=== PATIENT | female | born 1965 | race Caucasian/White ===

== ENCOUNTER 2024-09-01 21:07 | Emergency (ER) | payer OTHER, SELFPAY ==
[2024-09-01 21:28] VITALS: BP 133/74; PULSE 69; RESP 18; TEMP 36.6; O2SAT 98
--- NOTE | 2024-09-01 21:34 | PD.EDRME ---
Rapid Medical Screening Exam RME Arrival date/time: 09/01/24 21:07 Chief Complaint: Abdominal Pain Time Seen by Provider: 09/01/24 21:30 Vital signs: Vital Signs Temperature 97.9 F 09/01/24 21:28 Pulse Rate 69 09/01/24 21:28 Respiratory Rate 18 09/01/24 21:28 Blood Pressure 133/74 H 09/01/24 21:28 Pulse Oximetry (%) 98 09/01/24 21:28 Oxygen Delivery Method Room Air 09/01/24 21:28 RME Narrative: Generalized lower abdominal pain that started tonight. No N/V/D or urinary symptoms reported. 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
[2024-09-01 21:53] LABS: Basophils # (Auto) 0.1 Thou/mm3 (0.0-0.2); Basophils % (Auto) 1 % (0-2.5); Eosinophils # (Auto) 0.1 Thou/mm3 (0.0-0.5); Eosinophils % (Auto) 1 % (0-10); Hematocrit 37.4 % (36.0-46.0); Hemoglobin 12.7 g/dL (12.0-16.0); Immature Granulocytes % (Auto) 0 % (0-0); Immature Granulocytes Auto 0.02 Thou/mm3 (0.00-0.00); Lymphocytes # (Auto) 2.5 Thou/mm3 (1.0-4.8); Lymphocytes % (Auto) 25 % (10-50); Mean Corpuscular Hemoglobin 29.9 pg (25.0-35.0); Mean Corpuscular Volume 88 fL (80-100); Monocytes # (Auto) 0.6 Thou/mm3 (0.0-0.8); Monocytes % (Auto) 5 % (0-12); Neutrophils % (Auto) 69 % (37-80); Nucleated Red Blood Cell % 0 /100 WBC (0); Platelet Count 192 Thou/mm3 (140-440); RDW Standard Deviation 40.1 fL (36.4-46.3); Red Blood Count 4.25 Miln/mm3 (4.00-5.20); White Blood Count 10.1 Thou/mm3 (3.6-11.0)
[2024-09-01 22:34] LABS: Alanine Aminotransferase 21 U/L (10-49); Albumin, Serum 4.6 gm/dL (3.4-4.8); Albumin/Globulin Ratio 1.9 (1.2-2.2); Alkaline Phosphatase 63 U/L (46-116); Anion Gap 7 (7-16); Aspartate Amino Transferase 23 U/L (0-34); BUN/Creatinine Ratio 21 Ratio (12-20); Bilirubin,Total 0.5 mg/dL (0.3-1.2); Blood Urea Nitrogen 19 mg/dL (9-23); Calcium 9.6 mg/dL (8.3-10.6); Calcium (Corrected) 9.6 mg/dL (8.5-10.1); Carbon Dioxide 26.8 mMol/L (20.0-31.0); Chloride 106 mMol/L (98-107); Creatinine (Component) 0.9 mg/dL (0.6-1.3); Globulin 2.4 gm/dL (2.3-3.5); Glucose 131 mg/dL (74-106); Lipase 27 U/L (12-53); Osmolality,Calculated 283 (275-295); Potassium 4.6 mMol/L (3.4-5.1); Sodium 140 mMol/L (136-145); eGFR > 60 See Note
[2024-09-01 22:46] LABS: Collection Type, Urine Clean Catch; Squamous Epithelial Cell,Urine 0 /hpf (0-5)
[2024-09-01 22:51] LABS: Bilirubin,Urine Negative (Negative); Blood,Urine 1+ (Negative); Clarity,Urine Clear (Clear/Hazy); Color,Urine Lt-Yellow (Lt Yel-Yel); Glucose, Urine Negative (Negative); Ketones,Urine 1+ (Negative); Leukocyte Esterase,Urine Negative (Negative); Nitrite,Urine Negative (Negative); PH,Urine 5.5 (5.0-7.0); Protein,Urine Negative (Neg - Trace); RBC,Urine 1 /hpf (0-3); Specific Gravity,Urine 1.016 (1.001-1.035); Urobilinogen,Urine Negative mg/dL (0.0-1.0); WBC,Urine 1 /hpf (0-5)
[2024-09-01 23:25] VITALS: BP 162/78; PULSE 51; RESP 12; TEMP 36.6; O2SAT 100
[2024-09-01] MEDS: HYDROcodone/APAP 7.5/325 TABLET 1 TAB PO (23:33)
--- NOTE | 2024-09-01 23:36 | XR_ITS ---
Examination: CT abdomen and pelvis without contrast. Coronal 3-D reconstructions. Sagittal 2-D reconstructions. Date and time of exam:August 24, 2024 11:50 PM INDICATIONS: Lower abdominal pain and nausea today CTDI: vol (mGy): 6.18 DLP: (mGycm): 298 Technique: Axial images of the abdomen have been obtained, 3 mm slice thickness Intravenous contrast material has not been administered. Low dose protocols were performed. One or more of the following dose reduction techniques were used; automated exposure control, adjustment of the mA and/or KV according to patient size, use of iterative reconstruction technique. Findings: No focal liver or splenic lesions No pancreatic mass No renal or ureteral calculi, no hydronephrosis Aorta normal size Normal appendix No bowel obstruction No diverticulitis Urinary bladder intact Degenerative change lumbar spine IMPRESSION: No acute process in the abdomen or pelvis
[2024-09-02] MEDS: SODIUM CHLORIDE 0.9% 1000 ML 1,000 ML 999 ML IV (00:06)
--- NOTE | 2024-09-02 00:29 | PD.EDABDPN ---
ED Abdominal Pain RME/HPI General Chief Complaint: Abdominal Pain Stated complaint: ABD PAIN Time seen by provider: 09/01/24 21:30 Arrival date/time: 09/01/24 21:07 RME / HPI RME / HPI narrative: Generalized lower abdominal pain that started tonight. No N/V/D or urinary symptoms reported. 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 Dr. Higginbotham'aurelio Main ED Evaluation: 59yo female with a history of HTN presents to the ED for a chief complaint of LLQ pain x 1400. No radiation or migration. Patient states her pain worsens in waves. No aggravating or alleviating factors. Patient denies any N/V/D, dysuria, bloody stools, BLE swelling or any other associated symptoms. Denies any sick contacts. Denies any history of similar symptoms. Last bowel movement was this morning. She states she quit smoking cigaretted 3 weeks ago. Related Data Previous Rx's ?Medication ?Instructions ?Recorded meclizine 25 mg tablet 25 mg PO TID PRN dizziness #20 tabs 06/17/20 polyethylene glycol 3350 17 17 g PO BID 14 days #119 grams 09/02/24 gram/dose oral powder (Miralax) Allergies Allergy/AdvReac Type Severity Reaction Status Date / Time Iodinated Contrast Media Allergy Severe eyes Verified 09/01/24 23:35 swelling No Known Allergies Allergy Unknown Uncoded 09/01/24 21:07 Review of Systems Review of Systems Systems Reviewed: All systems reviewed, normal except as documented Past Medical History Past Medical History NEUROLOGIC: Negative Neurological Disorders, Seizures or Cerebral Palsy CARDIAC: Positive Cardiac Disorders and Hypertension; Negative Myocardial Infarction, Angina or Congestive Heart Failure RESPIRATORY: Negative Respiratory Disorders, Chronic Obstructive Pulmonary Disease (COPD), Asthma, Bronchitis or Pulmonary Fibrosis GASTROINTESTINAL: Negative Gastrointestinal Disorders, Cirrhosis or Celiac Disease GENITOURINARY: Negative Genitourinary Disorders or Renal Disease MUSCULOSKELETAL: Negative Musculoskeletal Disorders, Muscular Dystrophy or Bone Cancer ENT: Negative History of ENT Problems, Blind or Deafness ENDOCRINE: Negative Endocrine Disorders, Diabetes Mellitus Type 1 or Diabetes Mellitus Type 2 HEMATOLOGIC: Negative Blood Disorders or Sickle Cell Disease OTHER HISTORY: Positive Ovarian Cancer; Negative Autoimmune Disease, Down Syndrome or Developmental Delay Family History FAMILY HISTORY: Negative Family Psychiatric Problems, Family Respiratory Disorders, Family Cardiac Disorders, Family Gastrointestinal Problems, Family Genitourinary Problems, Family Endocrine Disorders, Family Reproductive Disorders, Family Musculoskeletal Disorders, Family Cancer, Family Surgery or Family Anesthesia Reaction Surgical History SURGICAL: Positive Lumpectomy and Hysterectomy; Negative Endocrine Surgery, Ear Surgery, Nephrectomy, Joint Replacement or Neurologic Surgery Social History SMOKING STATUS: Never smoker SUBSTANCE USE: does not use ED Exam Narrative Physical exam: General: Non-toxic, well appearing, in no acute distress, and appears stated age and well developed and well nourished. Vital signs: Normal. Head: Normocephalic and atraumatic. Eyes: Aproptotic, extraocular movements intact. Nose: Nares without evidence of rhinorrhea. Neck: Supple without menigismus without lympadenopathy. Heart: Regular rate and rhythm without murmur, gallops, or rubs. Lungs: Clear to auscultation without wheezing, rales, or rhonchi. Abdomen: Soft, non distended. No tenderness. Normal bowel sounds. Negative Finley sign and no McBurney?s point tenderness. No guarding, rebound, or rovsing. Back: No costovertebral angle tenderness. Neurological: Alert and oriented to person, place, time. Gait normal. Extremities: no cyanosis or edema. Skin: no rashes, ecchymosis, or lesions. Course Quality Measures none Orders Category Date Time Status CT Screening NOW Care 09/01/24 21:[address] abdomen pelvis wo con Stat Exams 09/01/24 23:36 Taken CBC Stat Lab 09/01/24 21:39 Completed CMP [Comprehensive Metabolic Panel] Stat Lab 09/01/24 21:39 Completed Lipase Stat Lab 09/01/24 21:39 Completed UA [Urinalysis] Stat Lab 09/01/24 22:04 Completed HYDROcodone*/APAP 7.5/325 [[place] 7.5/325] Med 09/01/24 21:36 Discontinued 1 tab PO X1 ONE Morphine Inj Med 09/01/24 23:44 Discontinued 4 mg IVP X1 ONE Ondansetron Inj [Zofran Inj] Med 09/01/24 23:44 Discontinued 4 mg IV X1 ONE Sodium Chloride 0.9% 1000 ml [Ns] 1,000 ml Med 09/01/24 23:44 Discontinued IV 999 mls/hr Vital Signs Vital signs: Vital Signs Temperature 97.9 F 09/01/24 21:28 Pulse Rate 69 09/01/24 21:28 Respiratory Rate 18 09/01/24 21:28 Blood Pressure 133/74 H 09/01/24 21:28 Pulse Oximetry (%) 98 09/01/24 21:28 Oxygen Delivery Method Room Air 09/01/24 21:28 Abdominal Pain MDM MDM Narrative MDM Narrative:: Scribe Attestation: 09/02/24 Samreen Garcia am scribing for and in the presence of Dr. Higginbotham. 0132: Discussed results with the patient and her at bedside. Patient states her pain is improved. Patient is stable to be discharged home. Patient data External records reviewed:: [facility] previous records (Per chart review, patient was seen here on 06/17/20 for acute subdural hematoma.) Clinical information provided by:: patient Social determinants that could affect healthcare access:: substance use (quit smoking tobacco 3 weeks ago) Patient has the following chronic illnesses:: HTN How is presenting disease/condition affected by chronic disease/condition?: uneffected by Evaluation data The following diagnostics were reviewed and interpreted by me:: lab results and radiology exam(s) Lab and/or radiology exams considered but not ordered:: none Interpretation Summary: CBC is normal, CMP is normal, Lipase is normal, UA is unremarkable, according to my interpretation. --------- Telerad Preliminary Report Draft Patient: JOHN ALVAREZ Record#: [id number] Birthdate: 1965 Age/Sex: 59 / F Location: [facility] Attending Dr: Ordering Physician: Date of Service: Procedure(s): Accession Number(s): cc: ~ CT scan of the abdomen and pelvis without intravenous contrast (axial sections with sagittal and coronal reformats) September 01, 2024 2350 hours Clinical History: lower abd pain Comparison: No prior study is available for comparison. Findings: There are emphysematous changes in the lungs. The liver, gallbladder, pancreas, spleen, kidneys and adrenals are unremarkable on this noncontrast study. No evidence of bowel obstruction. A moderate amount of fecal material is present in the colon. The appendix is within normal limits (coronal images 43-51/119). There is no mesenteric or retroperitoneal adenopathy. The urinary bladder is unremarkable. The abdominal aorta demonstrates atheromatous calcification without evidence of aneurysm. There is no free fluid or free air. Degenerative changes are identified in the spine. Impression: No evidence of bowel obstruction, free air or fluid collection. Report Electronically Signed By: Michael Denney 09/02/2024 12:52:40 AM Medications / Prescriptions Medications or Prescriptions considered but not ordered:: none Medication administrations:: Medication Administration History Discontinued Medications Hydrocodone Bitart/Acetaminophen (Hydrocodone/[place] 7.5/325 Tablet) 1 tab PO X1 ONE Stop: 09/01/24 21:37 Last Admin: 09/01/24 23:33 Dose: 1 tab Documented By: DAVIN Sodium Chloride (Ns) 1,000 mls @ 999 mls/hr IV .Q1H1M ONE Stop: 09/02/24 00:44 Last Infusion: 09/02/24 01:07 Dose: Infused Documented By: Admin: 09/02/24 00:06 Dose: 999 mls/hr Documented By: DAVIN Morphine Sulfate (Morphine Sulf Inj 10 Mg/Ml Vial) 4 mg IVP X1 ONE Stop: 09/01/24 23:45 Last Admin: 09/02/24 00:32 Dose: 4 mg Documented By: DAVIN Ondansetron HCl (Ondansetron Inj 2 Mg/Ml Inj 2 Ml) 4 mg IV X1 ONE; Protocol Stop: 09/01/24 23:45 Last Admin: 09/02/24 00:32 Dose: 4 mg Documented By: DAVIN see above Consultations Consultation(s) initiated? (list below): No Diagnosis Differential diagnosis abdominal pain: other (kidney stone, ileus, ischemia) Most likely diagnosis given after review of the tests above:: see clinical impression below Admission Indicated Admission indicated?: not indicated Admission Request Was there a request for admission?: No Disposition Plan Disposition Plan: Discharge Discharge Attestation Discharge Attestation: The patient and all family members were given an opportunity to ask questions and understood the discharge instructions. Discharge instructions specifically effects, indications for sooner follow up or return to the emergency department, and the expected course of current diagnosis. Patient condition: Stable Discharge Plan Plan Patient Disposition: HOME (Self Care) Patient condition on transfer: Stable Prescriptions/Referrals Prescriptions/Med Rec: New polyethylene glycol 3350 [Miralax] 17 gram/dose powder 17 g PO BID 14 Days Qty: 119 1RF Rx Instructions: Then once a day x 1 week. No Action meclizine 25 mg tablet 25 mg PO TID PRN (Reason: dizziness) Qty: 20 0RF Referrals: Kennedi Robert PA-C [Primary Care Provider] - In 1 week Problem List Clinical Impression: Abdominal pain Patient/Caregiver Discharge Instructions Education Materials: Abdominal Pain, High Fiber Diet Dc, ED Constipation (Adult) Additional Instructions: Take the Miralax as prescribed. Follow-up with your doctor in the next 48-72 hours for a recheck. Return to the ED for any worsening symptoms or as needed. Print Language: Citizen [place] Stand Alone Forms: [facility]achell Award Info., Patient Portal Info Letter
[2024-09-02] MEDS: ONDANSETRON INJ 2 MG/ML INJ 2 ML 4 MG IV (00:32)
[2024-09-02] MEDS: MORPHINE SULF INJ 10 MG/ML VIAL 4 MG IVP (00:32)
--- NOTE | 2024-09-02 00:53 | PRELIM_ITS ---
CT scan of the abdomen and pelvis without intravenous contrast (axial sections with sagittal and coronal reformats) September 01, 2024 2350 hours Clinical History: lower abd pain Comparison: No prior study is available for comparison. Findings: There are emphysematous changes in the lungs. The liver, gallbladder, pancreas, spleen, kidneys and adrenals are unremarkable on this noncontrast study. No evidence of bowel obstruction. A moderate amount of fecal material is present in the colon. The appendix is within normal limits (coronal images 43- 51/119). There is no mesenteric or retroperitoneal adenopathy. The urinary bladder is unremarkable. The abdominal aorta demonstrates atheromatous calcification without evidence of aneurysm. There is no free fluid or free air. Degenerative changes are identified in the spine. Impression: No evidence of bowel obstruction, free air or fluid collection. Report Electronically Signed By: Michael Denney 09/02/2024 12:52:40 AM [EST]
== END 2024-09-02 02:10 | disposition home or self-care (01) ==
PROVIDERS: Physician Assistant; Emergency Provider Emergency Medicine; PCP Physician Assistant Medical
DX: R10.84 Generalized abdominal pain (principal); R11.0 Nausea
CPT/HCPCS: 36415; 74176; 80053; 81001; 83690; 85025; 96360; 96374; 96375; 99284; J2270; J2405; J7030; A9270

== ENCOUNTER 2024-09-02 16:46 | Emergency (ER) | payer OTHER, SELFPAY ==
[2024-09-02 16:46] VITALS: BMI 20.2
[2024-09-02 17:02] VITALS: BP 134/69; PULSE 66; RESP 20; TEMP 36.6; O2SAT 98
--- NOTE | 2024-09-02 17:09 | EKG_ITS ---
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1965 Requested By: Siddharth Sheffield (MICHELE) Order Number: [id number] Reading MD: Siddharth Sheffield (EMERGENCY SERVICES DISPATCHER) Measurements Intervals [place] Rate: 57 P: 79 [place]: 159 QRS: 47 QRSD: 96 T: 70 QT: 445 QTc: 434 Interpretive Statements SINUS BRADYCARDIA POSSIBLE RIGHT ATRIAL ENLARGEMENT [0.25mV P-WAVE] LEFT ATRIAL ENLARGEMENT [-0.15mV P-WAVE IN V1/V2] INCOMPLETE RIGHT BUNDLE BRANCH BLOCK [90+ ms QRS DURATION, TERMINAL R IN V1/V2, 40+ ms S IN I/aVL/V4/V5/V6] MODERATE ST DEPRESSION [0.05+ mV ST DEPRESSION] No previous ECG available for comparison /store/[email or web address]/[id number].pdf
--- NOTE | 2024-09-02 17:09 | XR_ITS ---
Examination: PA lateral chest 2 views TECHNIQUE: Upright PA lateral chest 2 views Standing time: September 02, 2024 1722 hours Comparison June 08, 2006 INDICATIONS: Chest pain beginning last night. FINDINGS: Moderate hyperexpansion. Normal heart size. Accentuation of basilar bronchovascular markings. No lobar pneumonia or pulmonary edema Prominent osteopenia IMPRESSION: COPD Bronchitis.
--- NOTE | 2024-09-02 17:09 | XR_ITS ---
Examination: Abdomen AP single view Technique: AP portable supine abdomen, single view Exam date and time: September 02, 2024 1715 hours INDICATIONS: Onset abdominal pain beginning last night FINDINGS: Mild small bowel ileus Moderate air and stool in the right colon No free air No definite obstruction Moderate osteopenia IMPRESSION: Mild small bowel ileus
--- NOTE | 2024-09-02 17:10 | PD.EDRME ---
Rapid Medical Screening Exam RME Arrival date/time: 09/02/24 16:46 59-year-old female presents emergency department for complaints of generalized abdominal pain Chief Complaint: Abdominal Pain Vital signs: Vital Signs Temperature 97.9 F 09/02/24 17:02 Pulse Rate 66 09/02/24 17:02 Respiratory Rate 20 09/02/24 17:02 Blood Pressure 134/69 H 09/02/24 17:02 Pulse Oximetry (%) 98 09/02/24 17:02 Oxygen Delivery Method Room Air 09/02/24 17:02
[2024-09-02 18:17] LABS: Basophils % (Auto) 0 % (0-2.5); Eosinophils % (Auto) 0 % (0-10); Hemoglobin 15.1 g/dL (12.0-16.0); Immature Granulocytes % (Auto) 1 % (0-0); Immature Granulocytes Auto 0.08 Thou/mm3 (0.00-0.00); Lymphocytes # (Auto) 1.3 Thou/mm3 (1.0-4.8); Lymphocytes % (Auto) 8 % (10-50); Mean Corpuscular HGB Conc 34.3 g/dl (31.0-37.0); Mean Corpuscular Hemoglobin 29.4 pg (25.0-35.0); Mean Corpuscular Volume 86 fL (80-100); Monocytes # (Auto) 0.8 Thou/mm3 (0.0-0.8); Monocytes % (Auto) 5 % (0-12); Neutrophils % (Auto) 87 % (37-80); Nucleated Red Blood Cell % 0 /100 WBC (0); Platelet Count 148 Thou/mm3 (140-440); RDW Standard Deviation 38.3 fL (36.4-46.3); Red Blood Count 5.14 Miln/mm3 (4.00-5.20); White Blood Count 17.3 Thou/mm3 (3.6-11.0)
[2024-09-02 18:32] LABS: Alanine Aminotransferase 26 U/L (10-49); Albumin, Serum 5.4 gm/dL (3.4-4.8); Albumin/Globulin Ratio 1.9 (1.2-2.2); Alkaline Phosphatase 73 U/L (46-116); Anion Gap 10 (7-16); Aspartate Amino Transferase 33 U/L (0-34); BUN/Creatinine Ratio 14 Ratio (12-20); Bilirubin,Total 0.8 mg/dL (0.3-1.2); Blood Urea Nitrogen 10 mg/dL (9-23); Calcium 9.8 mg/dL (8.3-10.6); Calcium (Corrected) 9.8 mg/dL (8.5-10.1); Carbon Dioxide 24.6 mMol/L (20.0-31.0); Chloride 93 mMol/L (98-107); Creatinine (Component) 0.7 mg/dL (0.6-1.3); Estimated Creatinine Clearance 81.4 mL/min (>60); Globulin 2.9 gm/dL (2.3-3.5); Glucose 132 mg/dL (74-106); Lipase 49 U/L (12-53); Osmolality,Calculated 258 (275-295); Potassium 3.8 mMol/L (3.4-5.1); Sodium 128 mMol/L (136-145); Total Protein 8.3 gm/dL (5.7-8.2); Troponin I < 0.020 ng/mL (0.0-0.045); eGFR > 60 See Note
[2024-09-02 19:56] VITALS: BP 132/64; PULSE 63; RESP 18; TEMP 36.8; O2SAT 100
[2024-09-02] MEDS: HYDROcodone/APAP 5/325 TABLET 1 TAB PO (20:15)
[2024-09-02] MEDS: ONDANSETRON ODT 4 MG TABRAP PO (20:15)
[2024-09-02 21:41] LABS: Lactate (Lactic Acid) 2.8 mMol/L (0.4-2.0)
--- NOTE | 2024-09-02 22:23 | EDNOTE_ITS ---
ED Abdominal Pain RME/HPI General Chief Complaint: Abdominal Pain Stated complaint: CONSIPATION SEEN LAST NIGHT Time seen by provider: 09/02/24 20:51 Arrival date/time: 09/02/24 16:46 Source: patient, family and old records reviewed Limitations: no limitations RME / HPI RME / HPI narrative: 09/02/24 16:46 59-year-old female presents emergency department for complaints of generalized abdominal pain. Left 0200 0400- Vomitined TylenolWaves DR. YU MAIN ED EVALUATION: -P MHx: Hypertension -P Social Hx: N/A 59 y/o female with Hx of Hyopertension and Shx of Hysterectomy and Lumpectomy presents to ED c/o generalized abdominal pain and vomiting x 1 day. Patient denies any other associated symptoms or aggravating factors. No modifying factors, no radiation, no migration. No pain reported overall. PMHx: Hypertension Medications: Reviewed Social history: N/A PCP: JOSH Chaves MD complaint: abdominal pain Associated symptoms: vomiting Related Data Previous Rx's ?Medication ?Instructions ?Recorded meclizine 25 mg tablet 25 mg PO TID PRN dizziness # 20 tabs 06/17/20 polyethylene glycol 3350 17 17 g PO BID 14 days #119 g nicole 09/02/24 gram/dose oral powder (Miralax) Allergies Allergy/AdvReac Type Severity Reaction Status Date / Time Iodinated Contrast Media Allergy Severe eyes Verified 09/02/24 16:49 swelling No Known Allergies Allergy Unknown Uncoded 09/01/24 21:07 Review of Systems Review of Systems Systems Reviewed: All systems reviewed, normal except as documented Narrative Review of Systems: GI: + Abdominal pain, + vomiting Past Medical History Past Medical History CARDIAC: Positive Cardiac Disorders and Hypertension Surgical History SURGICAL: Positive Lumpectomy and Hysterectomy ED Exam Narrative Physical exam: GENERAL: In general the patient is awake, interactive, in an emergency [place]. HEAD/EYES/EARS/NOSE/THROAT: normo-cephalic, atraumatic, mucus membranes are moist. No cervical tenderness palpation midline. Supple neck. CARDIOVASCULAR: regular rate and regular rhythm, no murmurs, heart sounds are not distant, strong pulses in all four extremities that are equal and symmetric bilateral upper and lower extremities, normal capillary refill. CHEST/PULMONARY: normal chest rise and fall, good air movement, clear to auscultation bilaterally, normal inspiratory to expiratory ratios without evidence of respiratory distress. ABDOMEN: soft, not tender, no masses appreciated minimal tenderness patient in the mid abdomen. No rebound, no Finley sign. BACK: normal range of motion without pain. NEUROLOGICAL: cranio-facial features are symmetric, moves all four extremities equally without obvious limitations or weakness. EXTREMITY: no tenderness to palpation SKIN: warm, dry, well-perfused, no jaundice, no rash, no telangiectasias or petechia. PSYCH: calm, cooperative, no evidence of psychosis or agitation. General Limitations: Present no limitations Course Course Course Narrative: 2228: Dr. Sher pagerakel. 2 L IV fluid ordered. Plan to repeat lactic acid. Lactic Acid 1.2. Patient had a bed male movement 0255: CT angio is pending Quality Measures Possible source: pulmonary, GI tract/intra-abdominal and skin/soft tissue Blood cultures ordered: yes Antibiotic ordered: No Pertinent labs: 09/02/24 09/03/24 21:23 00:55 Lactic Acid 2.8 H mMol/L 1.2 mMol/L (0.4-2.0) (0.4-2.0) sepsis Orders Category Date Time Status CT Screening NOW Care 09/03/24 00:42 Active EKG (ED ONLY) *Do not use* NOW Care 09/02/24 17:[address] angio abdomen Stat Exams 09/03/24 00:42 Taken EKG (ED Only) Stat Exams 09/02/24 17:09 Draft XR abdomen 1V Stat Exams 09/02/24 17:09 Completed XR chest 2V Stat Exams 09/02/24 17:09 Completed XR small bowel single contrast Stat Exams 09/02/24 22:32 Completed CBC Stat Lab 09/02/24 17:33 Completed Comprehensive Metabolic Panel Stat Lab 09/02/24 17:33 Completed Lactic Acid [Lactate (Lactic Acid)] Stat Lab 09/02/24 21:23 Completed Lactic Acid, 3 HR Stat Lab 09/03/24 00:55 Completed Lipase Stat Lab 09/02/24 17:33 Completed Troponin I Stat Lab 09/02/24 17:33 Completed Urinalysis Stat Lab 09/03/24 03:24 Completed DiphenhydrAMINE INJ [Benadryl Inj] Med 09/02/24 22:33 Discontinued 25 mg IVP X1 ONE HYDROcodone*/APAP 5/325 [Rhodes 5/325] Med 09/02/24 17:19 Discontinued 1 tab PO X1 ONE Magnesium Citrate Liqd [Citrate of Magnesia Liqd] Med 09/02/24 20:52 Discontinued 150 ml PO X1 ONE MethylPREDNISolone.* [SoluMEDROL Inj] Med 09/02/24 22:33 Discontinued 125 mg IVP X1 ONE Ondansetron Inj [Zofran Inj] Med 09/02/24 20:54 Discontinued 4 mg IV X1 ONE Ondansetron Odt [Zofran Odt] Med 09/02/24 17:19 Discontinued 4 mg PO X1 ONE Sodium Chloride 0.9% 1000 ml [Ns] 1,000 ml Med 09/02/24 20:52 Discontinued IV 999 mls/hr Sodium Chloride 0.9% 1000 ml [Ns] 1,000 ml Med 09/02/24 23:32 Discontinued IV 999 mls/hr Vital Signs Vital signs: Vital Signs Temperature 97.9 F 09/02/24 17:02 Pulse Rate 66 09/02/24 17:02 Respiratory Rate 20 09/02/24 17:02 Blood Pressure 134/69 H 09/02/24 17:02 Pulse Oximetry (%) 98 09/02/24 17:02 Oxygen Delivery Method Room Air 09/02/24 17:02 Abdominal Pain MDM MDM Narrative MDM Narrative:: Scribe Attestation: Clotilde Colbert am scribing for and in the presence of Dr. Higginbotham. Provider Notation: Although this document has been carefully reviewed, there may still be some phonetic and other typographical errors. These errors are purely grammatical due to imperfections in the software program and should not be construed in any way to compromise the substance of the patient's medical care during this visit. 59-year-old female presenting to the emergency department with recurrence of her abdominal pain that started proximately 1 AM. The patient was seen 24 hours prior to arrival and had a ileus on a CT without contrast. The patient states that she had some eye swelling with her CT scan in the past. 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 In the emergency department the patient has a white count of 17,000 with otherwise stable hemoglobin of 15/44. Her platelets are normal. LFTs are normal and creatinine is 10/0.7. Glucose is slightly elevated at 132. LABS: Lactic acid is elevated 2.8. LFTs are normal. Troponin is negative x 1. Lipase is normal. Repeat lactic acid is 1.4. Differential diagnosis includes diverticulitis, ileus versus small bowel obstruction, bacteremia, occult abdominal infection, patient has no rebound however ischemic bowel is in the differential diagnosis. We discussed risks and benefits for CT scan with contrast to rule out ischemic bowel. I will treat the patient with steroids and Benadryl and obtain a CT scan. -Will check small bowel series with Gastrografin to rule out small bowel obstruction, -2238: Sepsis alert initiated. Orders made at this time are congruent with ED Adult Sepsis Order List. Re-evaluation is to be completed following the administration of IV fluids and antibiotics. Repeat lactic acid is 1.4. Patient was given a total of 2.5 L. She is pain- free in the emergency department. At this time there is no source for this patient's fever. This could just be an inflammatory process and/or viral syndrome. The patient does have good follow-up care in 24 hours with her primary care however she will call me tonight at 6 PM and/or text me to let me know how she is doing. The patient is aware that she should return immediately if she is having fever, increasing pain, or she cannot tolerate liquids. The CT scan does not show that she has ischemic bowel. I do not appreciate a fluid wave but I have reviewed the CT. Patient is aware of the return precautions. As well as the is at the bedside and we discussed return precautions. - Patient data External records reviewed:: [facility] previous records (Patient seen 24 hours ago for ileus.) Clinical information provided by:: patient and spouse Social determinants that could affect healthcare access:: none Patient has the following chronic illnesses:: Hypertension How is presenting disease/condition affected by chronic disease/condition?: uneffected by Evaluation data The following diagnostics were reviewed and interpreted by me:: lab results, radiology exam(s) and EKG tracing(s) (1715: Sinus bradycardia 57 BPM, nonspecific ST-T wave change, no STEMI, incomplete right bundle branch block, otherwise same as previous.) Lab and/or radiology exams considered but not ordered:: None Interpretation Summary: CHEST X-RAY FINDINGS: Moderate hyperexpansion. Normal heart size. Accentuation of basilar bronchovascular markings. No lobar pneumonia or pulmonary edema Prominent osteopenia IMPRESSION: COPD Bronchitis. ABDOMEN X-RAY FINDINGS: Mild small bowel ileus Moderate air and stool in the right colon No free air No definite obstruction Moderate osteopenia IMPRESSION: Mild small bowel ileus ABDOMEN CTA abdomen and pelvis with intravenous contrast (axial sections with sagittal and coronal reformats) Findings: Lung bases. The liver, gallbladder, spleen, adrenal glands, pancreas and kidneys are unremarkable. There is atherosclerotic calcification of the aorta without aneurysm or dissection. The appendix is normal, best seen on image 154. Moderate ascites in lower pelvis is incompletely imaged. There is wall thickening of the distal ileum. Celiac, superior and inferior mesenteric, bilateral renal and iliac arteries are patent. No acute osseous process. No bowel pneumatosis. Impression: 1. Ileitis and ascites. 2. No specific findings of mesenteric ischemia. 3. No arterial aneurysm/stenosis SMALL BOWEL X-RAY TECHNIQUE AND FINDINGS: Patient received 120 cc Gastrografin 1 minute and 30 minute 1 hour AP portable supine abdomen is obtained Mild dilatation of ileal small bowel loops However, contrast present throughout the colon on the one-hour film IMPRESSION: Negative for small bowel obstructioN No further films are needed LABS Hematlogy: WBC 17.3, Neut % 87%, Lymph % 8%, Immature granulocytes # 0.08, Immature granulocytes % 1%. Chemistry: Sodium 128, Chloride 93, Glucose 132, Calculated Osmality 258, Lactic Acid 2.8, Total protein 8.3, Albumin 5.4. Repeat lactic acid is 1.4. Medications / Prescriptions Medications or Prescriptions considered but not ordered:: None Medication administrations:: Medication Administration History Discontinued Medications Hydrocodone Bitart/Acetaminophen (Hydrocodone/Apap 5/325 Tablet) 1 tab PO X1 ONE Stop: 09/02/24 17:20 Last Admin: 09/02/24 20:15 Dose: 1 tab Documented By: MALIKA Diphenhydramine HCl (Diphenhydramine Inj 50 Mg/Ml Vial) 25 mg IVP X1 ONE Stop: 09/02/24 22:34 Last Admin: 09/02/24 23:26 Dose: 25 mg Documented By: ZOILA Sodium Chloride (Ns) 1,000 mls @ 999 mls/hr IV .Q1H1M ONE Stop: 09/02/24 21:52 Last Infusion: 09/02/24 23:25 Dose: Infused Documented By: Admin: 09/02/24 22:41 Dose: 999 mls/hr Documented By: ZOILA Sodium Chloride (Ns) 1,000 mls @ 999 mls/hr IV .Q1H1M ONE Stop: 09/03/24 00:32 Last Infusion: 09/03/24 01:23 Dose: Infused Documented By: Admin: 09/03/24 00:00 Dose: 999 mls/hr Documented By: ZOILA Magnesium Citrate (Magnesium Citrate 300 Ml Btl) 150 ml PO X1 ONE Stop: 09/02/24 20:53 Last Admin: 09/02/24 23:25 Dose: 150 ml Documented By: ZOILA Methylprednisolone Sodium Succinate (Methylprednisolone Sod Succ 62.5 Mg/Ml 2ml Vial) 125 mg IVP X1 ONE Stop: 09/02/24 22:34 Last Admin: 09/02/24 23:27 Dose: 125 mg Documented By: ZOILA Ondansetron HCl (Ondansetron Odt 4 Mg Tabrap) 4 mg PO X1 ONE; Protocol Stop: 09/02/24 17:20 Last Admin: 09/02/24 20:15 Dose: 4 mg Documented By: MALIKA Ondansetron HCl (Ondansetron Inj 2 Mg/Ml Inj 2 Ml) 4 mg IV X1 ONE; Protocol Stop: 09/02/24 20:55 Last Admin: 09/02/24 23:26 Dose: 4 mg Documented By: ZOILA See above if any Consultations Consultation(s) initiated? (list below): No Diagnosis Differential diagnosis abdominal pain: abdominal pain, diverticulitis and other (ileus versus small bowel obstruction, bacteremia, occult abdominal infection) Most likely diagnosis given after review of the tests above:: Abdominal pain, sepsis Admission Indicated Admission indicated?: not indicated Explain why admission is indicated or not indicated:: No significant findings indicative of admission at this time. Admission Request Was there a request for admission?: No Disposition Plan Disposition Plan: Discharge Discharge Attestation Discharge Attestation: The patient and all family members were given an opportunity to ask questions and understood the discharge instructions. Discharge instructions specifically effects, indications for sooner follow up or return to the emergency department, and the expected course of current diagnosis. Patient condition: Stable Discharge Plan Plan Patient Disposition: HOME (Self Care) Patient condition on transfer: Stable Prescriptions/Referrals Prescriptions/Med Rec: No Action meclizine 25 mg tablet 25 mg PO TID PRN (Reason: dizziness) Qty: 20 0RF polyethylene glycol 3350 [Miralax] 17 gram/dose powder 17 g PO BID 14 Days Qty: 119 1RF Rx Instructions: Then once a day x 1 week. Referrals: Kennedi Robert PA-C [Primary Care Provider] - 09/04/24 (As scheduled.) Problem List Clinical Impression: Abdominal pain Patient/Caregiver Discharge Instructions Diet Instructions: Please do clears and Gatorade and Pedialyte to stay hydrated today. Education Materials: Abdominal Pain Additional Instructions: You can text me at 6 PM tonight at [phone] to let me know how you are doing. If you are having a fever prior to 6 PM tonight you need to return immediately to the emergency department for recheck and possible admission. Today your CT scan does not show anything surgical. Even though you have been discharged from the Emergency Department, there are several things that you should do to ensure that you receive proper care: 1. DO READ your discharge instructions as these contain important information c oncerning your medical care. 2. If medication has been prescribed for your condition, fill the prescription as soon as possible and follow the directions on the medication. 3. RETURN AT ONCE TO THE EMERGENCY DEPARTMENT if you have any problems or concerns. These include but are not limited to fever, worsening pain(belly, chest, head, etc?), worsening shortness of breath, uncontrollable bleeding, inability to tolerate food and water, or any condition that makes you question your well-being. Also, if your symptoms do not improve in the next 12-24 hours, return to the ER or seek medical care immediately. 4. Be sure to follow up with your regular physician or specialist as instructed at discharge as this is the best way to ensure that you receive the very best of care. If you do not have a primary care physician, please contact a physician group and make an appointment. 5. Please visit [employer] for coupons regarding your prescriptions. It is a free service for you to use and can help reduce the cost of your medication. We would like to thank you for coming today and our hope is that we served you and your family well during your stay Print Language: Ukrainian Stand Alone Forms: [employer] Award Info., Patient Portal Info Letter
[2024-09-02 22:30] VITALS: BP 120/63; PULSE 64; RESP 17; TEMP 36.7; O2SAT 98
--- NOTE | 2024-09-02 22:32 | XR_ITS ---
Examination: Small bowel series 3 views Abdomen AP supine 3 views Examination time: September 02, 2024 10:51 PM INDICATIONS: Abdominal pain and distention this week TECHNIQUE AND FINDINGS: Patient received 120 cc Gastrografin 1 minute and 30 minute 1 hour AP portable supine abdomen is obtained Mild dilatation of ileal small bowel loops However, contrast present throughout the colon on the one-hour film IMPRESSION: Negative for small bowel obstruction No further films are needed
[2024-09-02] MEDS: SODIUM CHLORIDE 0.9% 1000 ML 1,000 ML 999 ML IV (22:41)
[2024-09-02] MEDS: MAGNESIUM CITRATE 300 ML BTL 150 ML PO (23:25)
[2024-09-02] MEDS: ONDANSETRON INJ 2 MG/ML INJ 2 ML 4 MG IV (23:26)
[2024-09-02] MEDS: DiphenhydrAMINE INJ 50 MG/ML VIAL 25 MG IVP (23:26)
[2024-09-02] MEDS: MethylPREDNISolone SOD SUCC 62.5 MG/ML 2ML VIAL 125 MG IVP (23:27)
[2024-09-03] MEDS: SODIUM CHLORIDE 0.9% 1000 ML 1,000 ML 999 ML IV
[2024-09-03 00:39] LABS: Reflex Lactate? Y
--- NOTE | 2024-09-03 00:42 | XR_ITS ---
Examination: CTA abdomen with intravenous contrast 2-D reconstructions 3-D reconstructions, vascular Date and time of exam: September 03, 2024 1346 hours INDICATIONS: Abdominal pain vomiting and constipation beginning 2 days ago CTDI: vol (mGy) 5.69 DLP: (mGycm) 214 Technique: Multiple 2 mm axial images of the abdomen have been obtained. 2-D sagittal and coronal reconstructions. 3-D angiographic renderings, 3-D volume renderings, 3D post processing, vascular maximum intensity projections obtained. Contrast administered is 100 cc Isovue 370. Low dose protocols were performed. One or more of the following dose reduction techniques were used; automated exposure control, adjustment of the mA and/or KV according to patient size, use of iterative reconstruction technique. Findings: Liver is irregular in contour with fatty infiltration Trace ascitic fluid No gallstones Spleen is not enlarged No pancreatic mass Nodular thickening of the adrenal glands No renal or ureteral calculi, hydronephrosis Aorta is not enlarged Small bowel loops demonstrate mild wall thickening especially distal ileal segments No air in the bowel wall Negative for pneumoperitoneum Impression: Primary hepatocellular disease. Mild ascites Negative for gallstones Small bowel enteritis pattern, no definite ischemic bowel noted Normal appendix
[2024-09-03 00:59] LABS: Lactic Acid, 3 HR 1.2 mMol/L (0.4-2.0)
--- NOTE | 2024-09-03 01:26 | PC.NURSE ---
After mag citrate pt did have large BM. pt is feeling better
[2024-09-03 01:32] VITALS: BP 118/52; PULSE 65; RESP 18; O2SAT 99
[2024-09-03 03:00] VITALS: BP 111/55; PULSE 68; RESP 16; TEMP 37.2; O2SAT 96
--- NOTE | 2024-09-03 03:12 | PRELIM_ITS ---
CT angiogram of abdomen and pelvis with intravenous contrast (axial sections with sagittal and coronal reformats) September 03, 2024 0146 hours Clinical History: 59-year-old with abdominal pain elevated lactate. Comparison: Compared with the prior study dated September 01, 2024. Findings: Clear lung bases. The liver, gallbladder, spleen, adrenal glands, pancreas and kidneys are unremarkable. There is atherosclerotic calcification of the aorta without aneurysm or dissection. The appendix is normal, best seen on image 154. Moderate ascites in lower pelvis is incompletely imaged. There is wall thickening of the distal ileum. Celiac, superior and inferior mesenteric, bilateral renal and iliac arteries are patent. No acute osseous process. No bowel pneumatosis. Impression: 1. Ileitis and ascites. 2. No specific findings of mesenteric ischemia. 3. No arterial aneurysm/stenosis Report Electronically Signed By: Juan Carlos Lindsey 09/03/2024 3:11:30 AM [EST]
[2024-09-03 03:31] LABS: Collection Type, Urine Voided; Squamous Epithelial Cell,Urine 0 /hpf (0-5)
[2024-09-03 03:47] LABS: Bilirubin,Urine Negative (Negative); Blood,Urine 1+ (Negative); Clarity,Urine Clear (Clear/Hazy); Color,Urine Colorless (Lt Yel-Yel); Glucose, Urine Negative (Negative); Ketones,Urine Trace (Negative); Leukocyte Esterase,Urine Negative (Negative); Nitrite,Urine Negative (Negative); Protein,Urine Negative (Neg - Trace); RBC,Urine 9 /hpf (0-3); Urobilinogen,Urine Negative mg/dL (0.0-1.0); WBC,Urine 1 /hpf (0-5)
[2024-09-03 04:30] VITALS: BP 115/67; PULSE 68; RESP 16; TEMP 36.8; O2SAT 97
--- NOTE | 2024-09-03 04:34 | PC.NURSE ---
pt has been sleeping most of the evening . Has been up to BR several times to void. Pt also had a large loose BM earlier. Denies pain since that time.
== END 2024-09-03 04:48 | disposition home or self-care (01) ==
PROVIDERS: Nurse Practitioner Primary Care; Emergency Provider Emergency Medicine; PCP Physician Assistant Medical
DX: R10.84 Generalized abdominal pain (principal); I10 Essential (primary) hypertension; R11.10 Vomiting, unspecified
CPT/HCPCS: 36415; 71046; 74018; 74175; 74250; 80053; 81001; 83605; 83690; 84484; 85025; 93005; 99285; A4649; A4699; J1200; J2405; J2919; J7030; Q0162; Q9967; A9270